=== PATIENT | male | born 1990 | race Two or more races ===

== ENCOUNTER 2023-07-15 16:35 | Emergency (ER) | payer SELFPAY ==
[~2023-07-15] VITALS: Ht 172.7 cm; Wt 88.9 kg
[2023-07-15 17:09] VITALS: BP 123/77; PULSE 86; RESP 18; O2SAT 95
== END 2023-07-15 21:02 | disposition left against medical advice (07) ==
LOC: ER 16:35
DX: M79.645 Pain in left finger(s) (principal); Z53.21 Procedure and treatment not carried out due to patient leaving prior to being seen by health care provider